=== PATIENT | male | born 1990 | race Caucasian/White ===

== ENCOUNTER 2019-03-14 11:00 | Emergency (ER) | payer MEDICAID ==
[~2019-03-14] VITALS: Ht 170.2 cm; Wt 81.6 kg
--- NOTE | 2019-03-14 11:12 | NUR ---
PT TO ER BED 10
[2019-03-14 11:13] VITALS: BP 133/98
--- NOTE | 2019-03-14 11:20 | NUR ---
c/o left inguinal area pain s/p straining or heavy lifting weights x 1 not notable to naked eye but palpable---ambulatory with steady gait no discoloration noted
[2019-03-14 12:46] LABS: APPEARANCE,URINE CLEAR (CLEAR); BILIRUBIN,URINE NEGATIVE (NEGATIVE); BLOOD, URINE NEGATIVE (NEGATIVE); COLOR,URINE YELLOW (YELLOW); LEUKOCYTE ESTERASE ,URINE NEGATIVE (NEGATIVE); NITRITE, URINE NEGATIVE (NEGATIVE); UGLUCOSE NEGATIVE (NEGATIVE)
[2019-03-14 12:54] LABS: RBC,URINE NONE SEEN /HPF (0-5); WBC,URINE NONE SEEN /HPF (0-5)
[2019-03-14] MEDS ORDERED: cefTRIAXone 250 MG in LIDOCAINE MPF 1% - 5 mL VIAL 0.9 ML IM ONE (13:15)
[2019-03-14] MEDS ORDERED: AZITHROMYCIN 250 MG TAB PO ONE (13:15)
[2019-03-14 13:20] VITALS: BP 133/98
--- NOTE | 2019-03-14 13:23 | NUR ---
Patient discharged with v/s stable. Written and verbal after care instructions given and explained. Patient verbalized understanding. Ambulatory with steady gait. All questions addressed prior to discharge. Advised to follow up with PMD.
[2019-03-16 07:19] LABS: CHLAMYDIA TRACHOMATIS AMP DNA Negative (Negative)
== END 2019-03-14 13:20 | disposition home or self-care (01) ==
LOC: MED 11:00
DX: R59.0 Localized enlarged lymph nodes (principal); Z88.6 Allergy status to analgesic agent
CPT/HCPCS: 36415; 76856; 81001; 96372; 99284; J0696; J2001; Q0092; 87491